=== PATIENT | male | born 1945 | race Caucasian/White ===

== ENCOUNTER 2016-07-22 08:28 | Day surgery (SDC) | payer MEDICARE, OTHER ==
--- NOTE | ~2016-07-22 | EGD ---
EGD REPORT [facility] [address] [id number] NAME: JILLIAN BUCKLEY : [birth year] STATUS : REG [facility]#: [id number] AGE: 70 ADM/REG DATE : 07/22/16 MR#: [id number] REPORT SERV DATE: 07/22/16 DICTATED BY: LOBO NAVARRETE DATE: 07/22/16 REPORT STATUS : Draft TRANSCRIBED BY: [facility] DATE: 07/22/16 Endoscopy Center Patient Name: Jillian Buckley Date of : 1945 Attending MD: LOBO NAVARRETE MD Procedure Date No Time: 07/22/2016 Procedure: Colonoscopy Indications: High risk colon cancer surveillance: Personal history of colonic polyps, Last colonoscopy: February 2013 Referring MD: MD rickie, NIDHI URBINA MD Medicines: See the Anesthesia note for documentation of the administered medications Complications: No immediate complications. Procedure: Pre-Anesthesia Assessment: - ASA Grade Assessment: III - A patient with severe systemic disease. After I obtained informed consent, the scope was passed under direct vision. Throughout the procedure, the patient's blood pressure, pulse, and oxygen saturations were monitored continuously. The PCF [id number] was introduced through the anus and advanced to the terminal ileum, with identification of the appendiceal orifice and IC valve. The colonoscopy was performed without difficulty. The patient tolerated the procedure well. The quality of the bowel preparation was adequate. Findings: The perianal and digital rectal examinations were normal. The terminal ileum appeared normal. Internal hemorrhoids were found during retroflexion and were small. Diverticula were found in the sigmoid colon. A sessile polyp was found in the transverse colon. The polyp was small in size. The polyp was removed with a cold biopsy forceps. Resection and retrieval were complete. Impression: - The examined portion of the ileum was normal. - Internal hemorrhoids. - Diverticulosis in the sigmoid colon. - One small polyp in the transverse colon. Resected and retrieved. Recommendation: - Patient has a contact number available for emergencies. The signs and symptoms of potential delayed complications were discussed with the patient. Return to normal activities tomorrow. Written discharge EGD REPORT [address] [address] NAME: JILLIAN BUCKLEY : [birth year] STATUS : REG [facility] PAT#: [id number] AGE: 70 ADM/REG DATE : 07/22/16 MR#: [id number] REPORT SERV DATE: 07/22/16 DICTATED BY: LOBO NAVARRETE DATE: 07/22/16 REPORT STATUS : Draft TRANSCRIBED BY: [email or web address] DATE: 07/22/16 instructions were provided to the patient. - Regular diet. - Continue present medications. - Repeat colonoscopy in 5 years for surveillance. - FOR YOUR BIOPSY RESULTS: Please go to [email or web address] and register to receive your results via the portal. Your biopsy results will be posted there in about 7 to 10 days. IF you do not see result in 10 days, call office. Procedure Code(s): --- Professional --- 20469, Colonoscopy, flexible, proximal to splenic flexure; with biopsy, single or multiple Diagnosis Code(s): --- Professional --- K64.8, Other hemorrhoids K57.30, Diverticulosis of large intestine without perforation or abscess without bleeding D12.3, Benign neoplasm of transverse colon Z86.010, Personal history of colonic polyps CPT copyright 2013 [employer]. All rights reserved. The codes documented in this report are preliminary and upon track repair worker review may be revised to meet current compliance requirements. Lobo Navarrete MD LOBO NAVARRETE MD 07/22/2016 9:43 AM This report has been signed electronically. Number of Addenda: 0 Note Initiated On: 07/22/2016 9:19 AM Scope Withdrawal Time 0 hours 9 minutes 7 seconds [id number] [id number]
[~2016-07-22 08:28] MED LIST: RELA5 PO; TUMMERIC; VIT B6; Z300 PO
== END 2016-07-22 23:59 | disposition home or self-care (01) ==
LOC: DMU 08:28
PROVIDERS: Internal Medicine Gastroenterology
PROC: 0DBL8ZZ Excision of Transverse Colon, Via Natural or Artificial Opening Endoscopic (ICD-10-PCS; principal; 2016-07-22 10:00)
DX: Z12.11 Encounter for screening for malignant neoplasm of colon (principal); D12.3 Benign neoplasm of transverse colon; K64.8 Other hemorrhoids; G62.9 Polyneuropathy, unspecified; M19.90 Unspecified osteoarthritis, unspecified site; K57.30 Diverticulosis of large intestine without perforation or abscess without bleeding; Z86.010 Personal history of colon polyps; Z90.49 Acquired absence of other specified parts of digestive tract
CPT/HCPCS: 88305